=== PATIENT | female | born 1930 | race Caucasian/White ===

== ENCOUNTER 2016-06-21 15:32 | Emergency (ER) | payer MEDICARE, OTHER ==
[2016-06-21 17:25] VITALS: TEMP 99
[2016-06-21 17:41] LABS: BASOPHILS % (AUTO) 1 % (0-3); EOSINOPHILS % (AUTO) 0 % (0-9); HEMATOCRIT 36 % (35-47); MEAN CORPUSCULAR HGB CONC 34.3 gm/dl (32.0-36.0); MEAN CORPUSCULAR VOLUME 91 fL (81-99); MONOCYTES % (AUTO) 16.2 % (0-12); NEUTROPHILS % (AUTO) 70.7 % (37-80)
[2016-06-21 17:58] LABS: CALCIUM 8.7 mg/dl (8.5-10.1); GLOM FILT RATE 68 mL/min (>60); POTASSIUM 4.4 mMol/L (3.5-5.1); SODIUM 133 mMol/L (136-145)
[2016-06-21] MEDS ORDERED: CODEINE/GUAIFENESIN 5 ML SOL PO ONE (18:20)
[2016-06-21] MEDS ORDERED: ALBUTEROL/IPRATROPIUM 1 VIAL SOL INH ONE (18:21)
[2016-06-21 18:37] VITALS: BP 215/98; PULSE 104; RESP 22; O2SAT 94
[2016-06-21] MEDS ORDERED: CLONIDINE 0.1 MG TAB PO ONE (18:51)
[2016-06-21] MEDS: AMLODIPINE 5 MG TAB PO SCH ×2 (18:58→18:59)
== END 2016-06-21 19:12 | DRG 866 ==
LOC: ED 15:32
DX: B34.9 Viral infection, unspecified (principal); I50.9 Heart failure, unspecified; R05 Cough
CPT/HCPCS: 36415; 71010; 80048; 83880; 84484; 85025; 87804; 93005; 99284; 99285; J7620